=== PATIENT | female | born 1980 | race Caucasian/White ===

== ENCOUNTER → 2017-09-05 | Emergency (ER) | payer OTHER ==
[~2017-09-05] VITALS: Ht 160 cm; Wt 97.5 kg
[~2017-09-05] MED LIST: COZAAR100 MG; INTESTINEX680 M1 PO; SINGULAIR10 MG; ZANTAC300 MG PO; ZYRTEC10 M3
== END | disposition home or self-care (01) ==
LOC: ER 20:54
DX: K52.89 Other specified noninfective gastroenteritis and colitis (principal)

== ENCOUNTER 2023-12-14 21:40 | Emergency (ER) | payer OTHER ==
[~2023-12-14] VITALS: Ht 162.6 cm; Wt 82.1 kg
[2023-12-14] MEDS ORDERED: ATORVASTATIN CA20 MG PO (22:22)
[2023-12-14] MEDS ORDERED: LOSARTAN POTAS100 MG PO (22:22)
[2023-12-14] MEDS ORDERED: AMLODIPINE-OLM1 EAC2 (22:23)
[2023-12-15] MEDS ORDERED: RINGERS SOLUTION,LACTATED 1,000 ML IV STA (00:15)
[2023-12-15] MEDS ORDERED: KETOROLAC TROMETHAMINE 30 MG VIAL IV STA (00:16)
[2023-12-15] MEDS ORDERED: MEPERIDINE HCL/PF 25 MG/ML VIAL IM STA (00:17)
[2023-12-15] MEDS ORDERED: PROMETHAZINE HCL 25 MG/ML AMPUL IM STA (00:18)
[2023-12-15] MEDS ORDERED: HYOSCYAMINE SULFATE 0.125 MG TAB.SUBL SL ONE (00:30)
[2023-12-15 00:31] LABS: HEMATOCRIT 39.1 % (36.0-45.00); HEMOGLOBIN 13.1 g/dL (12.0-15.00); MEAN CELL VOLUME 83.2 fL (80.00-100.00); MEAN CORPUSCULAR HEMOGLOBIN 27.9 pg (27.00-32.0); MEAN CORPUSCULAR HGB CONC 33.6 g/dl (32.0-36.0); PLATELET COUNT 473 K/uL (150-450); RED CELL DISTRIBUTION WIDTH 13.1 % (11.5-14.5)
[2023-12-15 00:51] LABS: CALCIUM 9.2 mg/dL (8.5-10.1); CREATININE SERUM 1.08 mg/dL (0.55-1.02); GFR 55.11; POTASSIUM 3.86 mEq/L (3.5-5.1)
[2023-12-15 01:29] LABS: PH,URINE 6.5 (5.0-8.0); URINE APPEARANCE Cloudy; URINE BILIRRUBIN Negative (NEGATIVE); URINE BLOOD Small; URINE COLOR Yellow; URINE GLUCOSE Negative (NEGATIVE); URINE LEUKOCYTE Negative; URINE NITRATE Negative; URINE PROTEIN Negative (NEGATIVE); URINE UROBILINOGEN 0.2 E.U./dl
[2023-12-15 01:33] LABS: URINE BACTERIA 4038.1 uL (0.0-1933); URINE EPITHELIAL CELLS 48.2 uL (0.0-38.8); URINE RBC 34.3 uL (0.0-20.8); URINE WBC 29.8 uL (0.0-23.2)
== END 2023-12-15 03:26 | disposition home or self-care (01) ==
LOC: ER 21:40
DX: N13.2 Hydronephrosis with renal and ureteral calculous obstruction (principal); Z91.018 Allergy to other foods